=== PATIENT | female | born 1965 | race Caucasian/White ===

== ENCOUNTER 2018-10-31 05:49 | Day surgery (SDC) | payer BC ==
[~2018-10-31] VITALS: Ht 157.5 cm; Wt 52.9 kg
[2018-10-31] VITALS (15 sets, daily range): BP systolic 109–141; BP diastolic 71–86; PULSE 56–80; RESP 8–19; Ht 157.5 cm; Wt 52.9 kg
[2018-10-31] MEDS ORDERED: LABETALOL HCL 20MG INJ ONE (07:00)
[2018-10-31] MEDS ORDERED: DEXAMETHASONE 4 MG/ML 5 ML INJ ONE (07:00)
[2018-10-31] MEDS ORDERED: CEFAZOLIN 1 GM INJ ONE (07:00)
[2018-10-31] MEDS ORDERED: ONDANSETRON 4 MG INJ ONE (07:00)
[2018-10-31] MEDS ORDERED: NEOMYC/POLYMYX/BACIT 30 GM OINT ONE (07:07)
[2018-10-31] MEDS ORDERED: BUPIVACAINE 0.5%/EPI (SDV) 30 ML INJ ONE (07:07)
[2018-10-31] MEDS ORDERED: POLYMYXIN/BACITRACIN 1L IRRIG ONE (07:07)
[2018-10-31] MEDS ORDERED: LIDOCAINE 1% (MPF) 30 ML INJ ONE (07:07)
[2018-10-31] MEDS ORDERED: FENTAnyl 50 MCG/ML VIAL ONE ×2 (07:10→08:59)
[2018-10-31] MEDS ORDERED: MIDAZOLAM 1 MG/ML 2 ML INJ ONE (07:10)
[2018-10-31] MEDS ORDERED: PROPOFOL 20 ML ONE (07:10)
[2018-10-31] MEDS ORDERED: LIDOCAINE 2% (SDV) 5 ML INJ ONE (07:10)
[2018-10-31] MEDS ORDERED: METOCLOPRAMIDE 10 MG INJ ONE (07:11)
--- NOTE | 2018-10-31 07:24 | PREAC ---
Date/Time of Note Date/Time of Note DATE: 10/31/18 TIME: 07:23 Anesthesia Eval and Record Evaluation Time Pre-Procedure Interview DATE: 10/31/18 TIME: 07:23 Age 53 Sex female NPO: 8 hrs Preoperative diagnosis R 1st toe bunion Planned procedure R 1st toe bunion surgery Past Medical History Past Medical History: Includes Cardio: HTN, Arrythmia Surgery & Anesthesia Issues No known issue Meds Anticoagulation: No Beta Heaven within 24 hr: Yes Meds reviewed: Yes Allergies Coded Allergies: Latex, Natural Rubber (Verified Allergy, Unknown, RAISED RASH, 10/31/18) Allergies Reviewed: Yes Labs/Studies Labs Reviewed: Reviewed by anesthesiologist test: Negative Studies: ECG, CXR Pre-procedure Exam Last vitals Vital Signs Date Temp Pulse Resp B/P (MAP) Pulse Ox O2 O2 Flow FiO2 Time Delivery Rate 10/31/18 97.7 80 18 141/85 100 07:21 (103) Airway: Adequate mouth opening, Adequate thyromental dist Mallampati: Mallampati III Teeth: Normal Lung: Normal Heart: Normal ASA Physical Status ASA physical status: 2 Emergency: None Planned Anesthetic General/MAC: MAC Planned Pain Management Single shot nerve block, Parenteral pain med, Local by surgeon Pre-operative Attestations Prior to commencing anesthesia and surgery, the patient was re-evaluated, there was verification of: *The patient's identity *The results of appropriate recent lab work and preoperative vital signs *The above evaluation not changing prior to induction *Anesthetic plan, risk benefits, alternative and complications discussed with patient/family; questions answered; patient/family understands, accepts and wishes to proceed. PEARL ROMO MD Oct 31, 2018 07:24
--- NOTE | 2018-10-31 07:28 | HPN ---
Date/Time of Note Date/Time of Note DATE: 10/31/18 TIME: 07:28 Interval H&P Admission Note Pt. seen H&P reviewed: No system changes DASIA WEINBERG MD Oct 31, 2018 07:28
[2018-10-31] MEDS ORDERED: hydrALAzine 20 MG INJ IV PRN (07:30)
[2018-10-31] MEDS ORDERED: ONDANSETRON 4 MG INJ IV PRN (07:30)
[2018-10-31] MEDS ORDERED: HYDROmorphONE 1 MG/5 ML IV SYRINGE IV PRN ×3 (07:30)
[2018-10-31] MEDS ORDERED: MEPERIDINE 25 MG INJ IV PRN (07:30)
[2018-10-31] MEDS ORDERED: HALOPERIDOL 5 MG INJ IV PRN (07:30)
[2018-10-31] MEDS ORDERED: MIDAZOLAM 1 MG/ML 2 ML INJ IV PRN (07:30)
[2018-10-31] MEDS ORDERED: LEVALBUTEROL (NEB) 1.25 MG/0.5 ML AMP HHN PRN (07:30)
[2018-10-31] MEDS ORDERED: traMADol 50 MG TAB PO ONE (07:30)
[2018-10-31] MEDS ORDERED: DIPHENHYDRAMINE 50 MG INJ IV PRN (07:30)
[2018-10-31] MEDS ORDERED: KETOROLAC 30 MG INJ IV SCH (07:30)
[2018-10-31] MEDS ORDERED: LABETALOL HCL 20MG INJ IV PRN (07:30)
[2018-10-31] MEDS ORDERED: morphine 2 MG INJ IV PRN (07:30)
[2018-10-31] MEDS ORDERED: ONDANSETRON 4 MG INJ IV ONE (07:30)
[2018-10-31] MEDS ORDERED: FENTAnyl 50 MCG/ML VIAL IV PRN ×2 (07:30)
[2018-10-31] MEDS ORDERED: BUPIVACAINE 0.5% (SDV) 30 ML INJ ONE (07:32)
[2018-10-31] MEDS ORDERED: ROPIVACAINE 0.5 % 30 ML VIAL ONE (07:32)
[2018-10-31] MEDS ORDERED: ATEN50TA PO (07:45)
[2018-10-31] MEDS ORDERED: PROPOFOL 100 ML ONE (07:45)
[2018-10-31] MEDS ORDERED: ATEN-51 PO (07:49)
[2018-10-31] MEDS ORDERED: DIAZ5TAB4 PO (07:50)
--- NOTE | 2018-11-01 14:30 | PAC ---
Date/Time of Note Date/Time of Note DATE: 11/01/18 TIME: 14:30 Post-Anesthesia Notes Post-Anesthesia Note Last documented vital signs Vital Signs Date Temp Pulse Resp B/P (MAP) Pulse Ox O2 O2 Flow FiO2 Time Delivery Rate 10/31/18 97.4 18 130/86 100 11:08 (101) 10/31/18 72 Room Air 11:00 10/31/18 8.0 10:10 Activity: WNL Respiratory function: WNL Cardiovascular function: WNL Mental status: Baseline Pain reasonably controlled: Yes Hydration appropriate: Yes Nausea/Vomiting absent: Yes PEARL ROMO MD Nov 01, 2018 14:30
--- NOTE | 2018-11-03 18:48 | QN ---
Documentation Job number: [id number] DASIA WEINBERG MD Nov 03, 2018 18:48
--- NOTE | 2018-11-03 21:40 | OPR ---
DATE OF OPERATION: 10/31/2018 SURGEON: Marcus Aranda MD TAPE RECORDER REPAIRER: None. PREOPERATIVE DIAGNOSIS: Right foot hallux rigidus grade 3 with metatarsus primus varus. 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 OPERATION PERFORMED: 1. Right foot 1st metatarsal cheilectomy with application of Cartiva implant. 2. Right foot Jeremy osteotomy of the proximal phalanx. ANESTHESIOLOGIST: Dr. Riojas. ANESTHESIA: MAC with ankle block. TOURNIQUET TIME: 87 minutes. IMPLANTS: Cartiva implant as well as Jeremy Arthrex nitinol staple 9 x 10. COMPLICATIONS: None. INDICATIONS: The patient is a 53-year-old female with ongoing pain over the 1st metatarsophalangeal joint with a valgus angulation of her proximal phalanx secondary to a previous fracture. Given her o ngoing pain, the patient agreed for surgery. RISK NOTE: The patient understands the risks of the surgery and understands that this is an implant that has only been around for approximately 3 years in the [place] with 10 years to date in [facility]; however, she understands that she may necessitate going on to a fusion in the future. OPERATIVE NOTE: The patient was met in the preoperative holding area. The operation was marked to c onfirm the patient and consent. The patient opted for an operative table, given preoperative antibio tics, amp of anesthesia. The patient was then given a typical ankle block with 30 mL of 0.5% Naropin in a typical fashion and without complication. The patient was reprepped and draped and was without nausea operating room, agreed to correct patient, extremity and procedure. Attention was initially turned to the 1st MTP joint. Incision was made over the dorsal aspect of the 1st MTP joint. It was brought down with care to avoid any injury to the neurovascular structures. The extensor hallux long us was retracted laterally and the neurovascular bundle was retracted medially. Incision was brought of the capsule. 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 The 1st metatarsal head was prepped in typical fashion for the Cartiva implant, maintained all the bone graft which was kept. The joint was fairly well aligned on the AP and lateral x-ray and the implant was then placed . The cyst was then packed with autograft and then shown to have excellent range of motion. Once th e graft was placed, the wound was then closed over the capsule. Attention was then turned to the pro ximal phalanx where incision was elongated and brought out over the proximal phalanx. The incision w as made and brought down to the proximal phalanx of the medial border and an osteotomy was performed at the capsule area, and a small wedge was removed and excised and then the correction was performed. Under fluoroscopy, the nitinol staple was then placed showing excellent correction and there is no penetration into the joint or into the subchondral surface. Given that this previous fracture it did make a little more challenging in terms of the correction of the osteotomy. There was excellent cor rection shown to be achieved. Then the wound was then irrigated and all wounds closed with 3-0 Monoc ryl followed by a 4-0 nylon and #1 fashion and dressed with Xeroform and triple antibiotic ointment a nd placed in a bunion wrap with the foot brought the first toe brought into varus prevent further col lapse into recurrent valgus. The wounds were then dressed with a compressive dressing, placed into a short boot. At the end of the case, all sponge and needle count were correct, and the patient's toe s were warm and well perfused. Dictated By: MARCUS CERRATO/NTS Conf#: [id number] DID#: [id number]
== END 2018-10-31 11:57 | disposition home or self-care (01) ==
LOC: SDS 05:49
PROVIDERS: ATTEND Orthopaedic Surgery
DX: M20.21 Hallux rigidus, right foot (principal); I10 Essential (primary) hypertension
CPT/HCPCS: 28298; 73630; 82306; J0690; J1100; J1885; J2250; J2405; J2765; J3010; J2795